=== PATIENT | male | born 1945 | race Caucasian/White ===

== ENCOUNTER 2021-08-26 13:39 | Outpatient (CLI) | payer MEDICARE, SELFPAY ==
[2021-08-26 15:47] LABS: Basophils # 0.1 10^3/uL (0.0-0.1); Basophils % 0.5 %; Eosinophils # 0.1 10^3/uL (0.0-0.8); Eosinophils % 0.5 %; Hematocrit 34.8 % (42.0-52.0); Hemoglobin 11.7 g/dL (11.7-16.6); Lymphocytes # 2.1 10^3/uL (0.8-4.8); Lymphocytes % 21.7 %; Mean Corpuscular HGB Conc 33.6 g/dL (30.0-36.0); Mean Corpuscular Hemoglobin 32.1 pg (28.0-34.0); Mean Corpuscular Volume 95.3 fl (80-94); Mean Platelet Volume 10.7 fL (7.4-10.4); Monocytes # 0.9 10^3/uL (0.2-0.9); Neutrophils # 6.61 10^3/uL (1.8-7.7); Neutrophils % 67.1 %; Nucleated Red Blood Cells # 0.1 /100WBC; Nucleated Red Blood Cells % 0.5 %; Platelet Count 939 10^3/cmm (130-400); Red Blood Count 3.65 10^6/uL (4.1-5.3); Red Cell Distribution Width 18.3 % (12.1-15.1); White Blood Count 9.9 10^3/uL (4.0-10.0)
[2021-08-26 16:37] LABS: Alanine Aminotransferase 21 U/L (0-41); Albumin Level 4.6 g/dL (3.5-5.2); Alkaline Phosphatase 69 IU/L (40-130); Aspartate Amino Transferase 19 U/L (0-40); Blood Urea Nitrogen 17 mg/dL (8-23); Calcium 9.6 mg/dL (8.5-10.5); Carbon Dioxide 25 mmol/L (22-29); Chloride 102 mmol/L (98-107); Ferritin 219 ng/mL (30-400); Globulin 2.7 g/dL (1.3-4.6); Glucose 114 mg/dL (65-115); Iron 83 ug/dL (59-158); Osmolality Calculated 286 mOsm/kg (285-295); Sodium 137 mmol/L (136-145); Thyroid Stimulating Hormone 2.63 uIU/mL (0.27-4.20); Total Bilirubin 0.2 mg/dL (0.15-1.2); Total Iron Binding Capacity 267 mcg/dl; Total Protein 7.3 g/dL (6.6-8.7); Unsaturated Iron Binding 184 ug/dL (112-347); Vitamin B12 781 pg/mL (232-1245)
[2021-08-26 17:23] LABS: Lactate Dehydrogenase 274 U/L (135-225)
--- NOTE | 2021-08-26 18:10 | ONC CON_ITS ---
Dr. Zuñiga New Patient Note Patient: Donovan Salcedo Unit #: [id number]: 1945 Dicatated By: Nacho Zuñiga M.D.Date of Visit: Aug 26, 2021 Onc MED New Patient/Consult Referring Physician: Riki Fu Chief Complaint: Myelofibrosis. History of Present Illness: This is a 75-year-old man with myelofibrosis, initially diagnosed in March 2020. He had presented in February 2020 with an elevated platelet count at 736,000. Hemoglobin was borderline low at 13.8 g. Blood smear reportedly showed numerous large platelet forms. His bone marrow aspiration/biopsy on 04/01/2020 was mildly hypercellular with increased megakaryocytes. 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 The JAK2 V617F mutation was detected, but at a level which did not meet WHO criteria (0.1%). 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 At the time he had significant fatigue as well as left upper quadrant abdominal pain and splenomegaly. In April 2020 he began treatment with ruxolitinib, initially at 5 mg twice daily. Over the next several months the dosage was gradually escalated up to 15 mg twice daily. He had a very good clinical response with resolution of the splenomegaly and left upper quadrant pain. He also had some improvement in his constitutional symptoms. During subsequent follow-up, the dosage was reduced to 15 mg once daily and then maintained at that level. He is being seen here so that he can continue his follow-up care closer to home. He continues to complain that his energy is very low. He especially feels tired in the evenings. Some days he is able to do light work, but overall he does feel that his activity tolerance is declining. His ECOG score is 1. His appetite recently has been down a little, but his weight has remained stable. He does not have fever or night sweats. He has not had sore mouth or throat. He does have cough, attributable to smoking, and he also has shortness of breath with activity. He very occasionally has chest pain. He currently has no GI complaints. In particular, he has had no recurrence of the left upper quadrant abdominal pain. Bladder function remains adequate, though he does have some hesitancy and he has nocturia 2 or 3 times. Lately he has had some pain in the lower back area. He has no other joint or bone pain. He has occasional orthostatic lightheadedness. He does not complain of headache, and he has no focal neurologic symptoms. Past Medical History: His medical history includes benign prostatic hypertrophy, chronic obstructive pulmonary disease, hypertension, and myelofibrosis. Past Surgical History: His surgical/procedural history includes amputation of finger and thumb, left foot surgery for traumatic injury, bone marrow aspiration/biopsy in 2019, and colonoscopy in 2015. Medications: amLODIPine Besylate 1 - 2 Tablet (of 5 mg) Oral daily, Aspirin 1 Tablet (of 81 mg) Tablet, chewable Oral daily, Daily Vitamin 1 Tablet Oral daily, Jakafi 1 Tablet (of 15 mg) Oral daily, Saw Hudson 1 Tablet Oral daily Allergies: No Known Allergies. Social History: Mr. Salcedo is . He has a long history of smoking, which included 1 pack of cigarettes daily until sometime in the early 1980s. At that point he changed to smoking a pipe, which he continues presently. He drinks 2 beers daily. He has never been a heavy drinker. Family History: His father at age 78 with COPD. Mother had heart disease and stroke. She at age 80. Two sisters both with heart disease in their 40s. One had a sudden and the other apparently during a heart transplant procedure. Review Of Symptoms: Constitutional - He complains that his energy is very low. He particularly feels tired in the evenings. His activity is variable, but some days he is able to do light work. He does feel that his activity tolerance is declining. Appetite recently has been down, but his weight has been stable. He does not have fever or night sweats. ECOG score is 1, Eyes - No change in vision, ENMT - No hearing loss or tinnitus. No sinus congestion/drainage. No mouth sores. No sore throat or difficulty swallowing, Hematologic/Lymphatic - He bruises extremely easily and he tends to bleed profusely with cuts, Respiratory - He has shortness of breath. He has cough, attributable to smoking. No pleuritic pain or hemoptysis, Cardiovascular - He very occasionally has chest pain. No palpitations, Gastrointestinal - No nausea or vomiting. He has heartburn with spicy foods. No diarrhea or constipation. No blood in the stool or black stools, Genitourinary (M) - No dysuria or hematuria. No urinary frequency. He has some hesitancy with urination and he has nocturia 2 or 3 times. No urgency or incontinence, Musculoskeletal - He has some lower back pain, Integumentary - No skin rash or other skin changes, Neurologic - No headache. He has occasional orthostatic lightheadedness. No numbness or tingling. No other focal neurologic symptoms, Psychiatric - No anxiety. He has some depression, attributable to his declining activity tolerance. No insomnia. Vital Signs: Performed on Aug 26, 2021 15:18: 71.00 in, 169/71 mm(hg) (HIGH), Performed on Aug 26, 2021 15:17: 8, 0, 20.95, 1.87 sq.m, 97 %, 73 /min, 18 /min, 99.5 F (HIGH), and 150.2 lbs (HIGH). Physical Examination: Constitutional - He appears somewhat weak generally, but not acutely ill, Eyes - Sclerae nonicteric. Conjunctivae clear, ENMT - No lesions noted in the oral cavity, Neck - No mass or thyromegaly, Hematologic/Lymphatic - No cervical, clavicular, or axillary adenopathy, Respiratory - Lungs sound clear with some decrease in air movement bilaterally, Cardiovascular - Heart rhythm is regular. There is no murmur, gallop, or rub noted, Abdomen - Soft and non-tender. Liver is not enlarged. Spleen is not palpable. There is no abdominal mass or ascites noted and there is no inguinal adenopathy, Back/Spine - No spine or CVA tenderness noted, Extremities - No edema. Dorsalis pedis pulses are palpable bilaterally, Integumentary - No rashes. No suspicious skin lesions noted, Neurologic - No focal neurologic deficits noted. Problem List: 1. Primary myelofibrosis. 2. Hypertension. 3. COPD. 4. Benign prostatic hypertrophy. Problems Addressed with this Encounter and Plan: Patient with primary myelofibrosis, presenting in February 2020 with thrombocythemia, splenomegaly, left upper quadrant abdominal pain, and constitutional symptoms. Bone marrow aspiration/biopsy on 04/01/2020 showed hypercellular marrow with increased megakaryocytes and with diffuse 1+ reticulin fibrosis. The JAK2 V617F mutation was detected, but at a level which did not meet WHO criteria (0.1%). 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 He has had a very good clinical response to treatment with ruxolitinib, with the dosage eventually adjusted to 15 mg once daily, which he seems to tolerate well. He also is on prophylaxis with an 81 mg aspirin tablet daily. He does have a moderate bleeding tendency, but his initial evaluation also did include negative screening for acquired von Willebrand's disease. He will have laboratory studies today to include CBC, comprehensive metabolic profile, LDH level, serum iron studies, B12 level, and TSH level. Assuming the blood counts are within target range, he will continue ruxolitinib at 15 mg daily together with aspirin 81 mg daily. I will tentatively plan to continue follow-up at 3-month intervals. Signed By: Nacho Zuñiga M.D. <<Signature on File>>
[2021-08-26 23:14] LABS: LAB Peripheral Smear Sent for Review
== END 2021-08-26 13:40 | disposition home or self-care (01) ==
LOC: ONCMED 13:46
PROVIDERS: PCP Family Medicine; Visit Provider Internal Medicine Medical Oncology
DX: D47.1 Chronic myeloproliferative disease (principal); I10 Essential (primary) hypertension; J44.9 Chronic obstructive pulmonary disease, unspecified; N40.1 Benign prostatic hyperplasia with lower urinary tract symptoms
CPT/HCPCS: 36415; 80053; 82607; 82728; 83540; 83550; 83615; 84443; 85025; 99204

== ENCOUNTER 2021-11-30 10:48 | Oncology outpatient (recurring) (ONCR) | payer MEDICARE, SELFPAY ==
[2021-11-30 11:29] LABS: Basophils # 0.1 10^3/uL (0.0-0.1); Basophils % 0.8 %; Eosinophils # 0.1 10^3/uL (0.0-0.8); Hematocrit 34.8 % (42.0-52.0); Lymphocytes # 2.5 10^3/uL (0.8-4.8); Lymphocytes % 24.5 %; Mean Corpuscular HGB Conc 34.5 g/dL (30.0-36.0); Mean Corpuscular Hemoglobin 32.2 pg (28.0-34.0); Mean Corpuscular Volume 93.3 fl (80-94); Mean Platelet Volume 10.7 fL (7.4-10.4); Monocytes % 9.5 %; Neutrophils # 6.18 10^3/uL (1.8-7.7); Neutrophils % 61.6 %; Nucleated Red Blood Cells # 0.1 /100WBC; Nucleated Red Blood Cells % 0.8 %; Platelet Count 917 10^3/cmm (130-400); Red Blood Count 3.73 10^6/uL (4.1-5.3); Red Cell Distribution Width 18.6 % (12.1-15.1)
[2021-11-30 13:21] LABS: Alanine Aminotransferase 26 U/L (0-41); Albumin Level 4.7 g/dL (3.5-5.2); Alkaline Phosphatase 63 IU/L (40-130); Anion Gap 15.6 (5-19); Aspartate Amino Transferase 22 U/L (0-40); Blood Urea Nitrogen 17 mg/dL (8-23); Calcium 9.4 mg/dL (8.5-10.5); Carbon Dioxide 25 mmol/L (22-29); Chloride 100 mmol/L (98-107); Glucose 101 mg/dL (65-115); Lactate Dehydrogenase 308 U/L (135-225); Osmolality Calculated 284 mOsm/kg (285-295); Potassium 4.6 mmol/L (3.5-5.1); Sodium 136 mmol/L (136-145); Total Bilirubin 0.2 mg/dL (0.15-1.2); Total Protein 6.7 g/dL (6.6-8.7)
== END 2021-12-12 23:59 | disposition home or self-care (01) ==
PROVIDERS: PCP Family Medicine; Visit Provider Internal Medicine Medical Oncology
DX: D75.81 Myelofibrosis (principal); J44.9 Chronic obstructive pulmonary disease, unspecified; Z79.82 Long term (current) use of aspirin; Z79.891 Long term (current) use of opiate analgesic; Z79.899 Other long term (current) drug therapy
CPT/HCPCS: 36415; 80053; 83615; 85025; 99214

== ENCOUNTER 2022-03-02 12:23 | Oncology outpatient (recurring) (ONCR) | payer MEDICARE, SELFPAY ==
[2022-03-02 12:48] LABS: Basophils # 0.1 10^3/uL (0.0-0.1); Basophils % 0.8 %; Eosinophils # 0.1 10^3/uL (0.0-0.8); Eosinophils % 0.5 %; Hematocrit 36.5 % (42.0-52.0); Hemoglobin 12.5 g/dL (11.7-16.6); Lymphocytes # 2.4 10^3/uL (0.8-4.8); Lymphocytes % 24.9 %; Mean Corpuscular HGB Conc 34.2 g/dL (30.0-36.0); Mean Corpuscular Hemoglobin 33.6 pg (28.0-34.0); Mean Corpuscular Volume 98.1 fl (80-94); Mean Platelet Volume 10.4 fL (7.4-10.4); Monocytes # 0.9 10^3/uL (0.2-0.9); Monocytes % 9.9 %; Neutrophils # 5.86 10^3/uL (1.8-7.7); Neutrophils % 61.5 %; Nucleated Red Blood Cells # 0.1 /100WBC; Nucleated Red Blood Cells % 0.6 %; Platelet Count 868 10^3/cmm (130-400); Red Blood Count 3.72 10^6/uL (4.1-5.3); Red Cell Distribution Width 18.4 % (12.1-15.1); White Blood Count 9.5 10^3/uL (4.0-10.0)
[2022-03-02 13:11] LABS: Alanine Aminotransferase 23 U/L (0-41); Albumin Level 4.6 g/dL (3.5-5.2); Alkaline Phosphatase 63 U/L (40-130); Anion Gap 14.6 (5-19); Aspartate Amino Transferase 19 U/L (0-40); Blood Urea Nitrogen 17 mg/dL (8-23); Calcium 9.4 mg/dL (8.5-10.5); Carbon Dioxide 27 mmol/L (22-29); Chloride 101 mmol/L (98-107); Globulin 2.6 g/dL (1.3-4.6); Glucose 111 mg/dL (65-115); Lactate Dehydrogenase 323 U/L (135-225); Osmolality Calculated 288 mOsm/kg (285-295); Potassium 4.6 mmol/L (3.5-5.1); Sodium 138 mmol/L (136-145); Total Bilirubin 0.2 mg/dL (0.15-1.2); Total Protein 7.2 g/dL (6.6-8.7)
== END 2022-03-14 23:59 | disposition home or self-care (01) ==
PROVIDERS: Nurse Practitioner; PCP Family Medicine; Visit Provider Internal Medicine Medical Oncology
DX: D75.81 Myelofibrosis (principal); J44.9 Chronic obstructive pulmonary disease, unspecified; Z79.82 Long term (current) use of aspirin; Z79.891 Long term (current) use of opiate analgesic; Z79.899 Other long term (current) drug therapy; F17.210 Nicotine dependence, cigarettes, uncomplicated; F10.20 Alcohol dependence, uncomplicated
CPT/HCPCS: 80053; 83615; 85025; 99214

== ENCOUNTER 2022-06-20 10:38 | Oncology outpatient (recurring) (ONCR) | payer MEDICARE, SELFPAY ==
[2022-06-20 11:14] LABS: Basophils # 0.1 10^3/uL (0.0-0.1); Eosinophils # 0.1 10^3/uL (0.0-0.8); Hematocrit 36.1 % (42.0-52.0); Hemoglobin 11.8 g/dL (11.7-16.6); Lymphocytes # 2.7 10^3/uL (0.8-4.8); Lymphocytes % 24.3 %; Mean Corpuscular HGB Conc 32.7 g/dL (30.0-36.0); Mean Corpuscular Hemoglobin 31.6 pg (28.0-34.0); Mean Corpuscular Volume 96.5 fl (80-94); Mean Platelet Volume 10.1 fL (7.4-10.4); Monocytes # 1.2 10^3/uL (0.2-0.9); Monocytes % 11.3 %; Neutrophils # 6.37 10^3/uL (1.8-7.7); Neutrophils % 58.3 %; Nucleated Red Blood Cells # 0.1 /100WBC; Nucleated Red Blood Cells % 1.1 %; Platelet Count 764 10^3/cmm (130-400); Red Blood Count 3.74 10^6/uL (4.1-5.3); Red Cell Distribution Width 18.1 % (12.1-15.1); White Blood Count 10.9 10^3/uL (4.0-10.0)
[2022-06-20 11:34] LABS: LAB Peripheral Smear Sent for Review
[2022-06-20 11:36] LABS: Alanine Aminotransferase 24 U/L (0-41); Albumin Level 4.4 g/dL (3.5-5.2); Alkaline Phosphatase 71 U/L (40-130); Anion Gap 11.5 (5-19); Aspartate Amino Transferase 19 U/L (0-40); Blood Urea Nitrogen 22 mg/dL (8-23); Calcium 9.3 mg/dL (8.5-10.5); Carbon Dioxide 29 mmol/L (22-29); Chloride 100 mmol/L (98-107); Globulin 2.2 g/dL (1.3-4.6); Glucose 101 mg/dL (65-115); Lactate Dehydrogenase 320 U/L (135-225); Osmolality Calculated 285 mOsm/kg (285-295); Potassium 4.5 mmol/L (3.5-5.1); Sodium 136 mmol/L (136-145); Total Bilirubin 0.2 mg/dL (0.15-1.2); Total Protein 6.6 g/dL (6.6-8.7)
== END 2022-07-12 23:59 | disposition home or self-care (01) ==
PROVIDERS: PCP Family Medicine; Visit Provider Internal Medicine Medical Oncology
DX: D75.81 Myelofibrosis (principal); J44.9 Chronic obstructive pulmonary disease, unspecified; F17.210 Nicotine dependence, cigarettes, uncomplicated; F10.20 Alcohol dependence, uncomplicated; Z79.82 Long term (current) use of aspirin; Z79.891 Long term (current) use of opiate analgesic; Z79.899 Other long term (current) drug therapy
CPT/HCPCS: 36415; 80053; 83615; 85025; 99214

== ENCOUNTER 2022-09-20 12:11 | Oncology outpatient (recurring) (ONCR) | payer MEDICARE, SELFPAY | END 2022-10-12 23:59 | disposition home or self-care (01) | PROVIDERS: PCP Family Medicine; Visit Provider Internal Medicine Medical Oncology | DX: D75.81 Myelofibrosis (principal); J44.9 Chronic obstructive pulmonary disease, unspecified; F17.210 Nicotine dependence, cigarettes, uncomplicated; F10.20 Alcohol dependence, uncomplicated; Z79.82 Long term (current) use of aspirin; Z79.891 Long term (current) use of opiate analgesic; Z79.899 Other long term (current) drug therapy | CPT/HCPCS: 36415; 80053; 83615; 85025; 99214 ==

== ENCOUNTER 2022-11-01 13:41 | Oncology outpatient (recurring) (ONCR) | payer MEDICARE, SELFPAY ==
[2022-11-01 13:54] VITALS: BP 145/84; PULSE 85; RESP 18; TEMP 36.5; O2SAT 97
[2022-11-01 14:04] LABS: Basophils # 0.1 10^3/uL (0.0-0.1); Basophils % 0.9 %; Eosinophils # 0.1 10^3/uL (0.0-0.8); Eosinophils % 0.9 %; Hematocrit 37.1 % (42.0-52.0); Hemoglobin 12.4 g/dL (11.7-16.6); Lymphocytes # 2.9 10^3/uL (0.8-4.8); Lymphocytes % 24.5 %; Mean Corpuscular HGB Conc 33.4 g/dL (30.0-36.0); Mean Corpuscular Volume 95.9 fl (80-94); Mean Platelet Volume 10.1 fL (7.4-10.4); Monocytes % 8.9 %; Neutrophils # 7.12 10^3/uL (1.8-7.7); Neutrophils % 60.5 %; Nucleated Red Blood Cells # 0.1 /100WBC; Nucleated Red Blood Cells % 0.7 %; Platelet Count 766 10^3/cmm (130-400); Red Blood Count 3.87 10^6/uL (4.1-5.3); Red Cell Distribution Width 17.4 % (12.1-15.1); White Blood Count 11.8 10^3/uL (4.0-10.0)
== END 2022-11-11 23:59 | disposition home or self-care (01) ==
PROVIDERS: PCP Family Medicine; Visit Provider Internal Medicine Medical Oncology
DX: D75.81 Myelofibrosis (principal)
CPT/HCPCS: 36415; 85025

== ENCOUNTER 2022-12-23 11:00 | Oncology outpatient (recurring) (ONCR) | payer MEDICARE, SELFPAY ==
[2022-12-21 12:49] VITALS: BP 109/66; PULSE 99; RESP 18; TEMP 36.7; O2SAT 90
[2022-12-21 13:01] LABS: Basophils # 0.1 10^3/uL (0.0-0.1); Basophils % 0.7 %; Eosinophils # 0.1 10^3/uL (0.0-0.8); Eosinophils % 0.6 %; Hematocrit 33.3 % (42.0-52.0); Hemoglobin 10.9 g/dL (11.7-16.6); Lymphocytes # 2.9 10^3/uL (0.8-4.8); Lymphocytes % 17.7 %; Mean Corpuscular HGB Conc 32.7 g/dL (30.0-36.0); Mean Corpuscular Hemoglobin 32.1 pg (28.0-34.0); Mean Corpuscular Volume 97.9 fl (80-94); Mean Platelet Volume 9.7 fL (7.4-10.4); Monocytes # 1.5 10^3/uL (0.2-0.9); Monocytes % 9.4 %; Neutrophils # 10.98 10^3/uL (1.8-7.7); Neutrophils % 67.3 %; Nucleated Red Blood Cells # 0.1 /100WBC; Nucleated Red Blood Cells % 0.4 %; Platelet Count 1405 10^3/cmm (130-400); Red Cell Distribution Width 17.4 % (12.1-15.1); White Blood Count 16.3 10^3/uL (4.0-10.0)
[2022-12-21 13:26] LABS: Alanine Aminotransferase 12 U/L (0-41); Albumin Level 3.9 g/dL (3.5-5.2); Alkaline Phosphatase 90 U/L (40-130); Anion Gap 15.5 (5-19); Aspartate Amino Transferase 20 U/L (0-40); Blood Urea Nitrogen 16 mg/dL (8-23); Calcium 9.3 mg/dL (8.5-10.5); Carbon Dioxide 28 mmol/L (22-29); Chloride 99 mmol/L (98-107); Globulin 2.9 g/dL (1.3-4.6); Glucose 100 mg/dL (65-115); Lactate Dehydrogenase 338 U/L (135-225); Osmolality Calculated 287 mOsm/kg (285-295); Potassium 4.5 mmol/L (3.5-5.1); Sodium 138 mmol/L (136-145); Total Bilirubin 0.2 mg/dL (0.15-1.2); Total Protein 6.8 g/dL (6.6-8.7)
[2022-12-21 15:50] LABS: LAB Peripheral Smear Sent for Review
[2022-12-23 09:53] VITALS: BP 154/77; PULSE 84; RESP 18; TEMP 36.8; O2SAT 96
[2022-12-27 06:58] LABS: Leukemia Profile (BBPL) See Report; Lymphoma Profile (BBPL) See Report
== END 2023-01-12 23:59 | disposition home or self-care (01) ==
PROVIDERS: PCP Family Medicine; Visit Provider Internal Medicine Medical Oncology
DX: D75.81 Myelofibrosis (principal)
CPT/HCPCS: 36415; 80053; 83615; 85025; 88184; 88185; 99214

== ENCOUNTER 2023-01-18 14:15 | Oncology outpatient (recurring) (ONCR) | payer MEDICARE, SELFPAY ==
[2023-01-18 14:34] VITALS: BP 156/75; PULSE 70; RESP 18; TEMP 37.1; O2SAT 96
[2023-01-18 14:53] LABS: Basophils # 0.1 10^3/uL (0.0-0.1); Basophils % 1.2 %; Eosinophils # 0.1 10^3/uL (0.0-0.8); Hematocrit 34.4 % (37-53); Lymphocytes # 2.8 10^3/uL (0.8-4.8); Mean Corpuscular HGB Conc 32.6 g/dL (30-55); Mean Corpuscular Hemoglobin 32.1 pg (27-33); Mean Corpuscular Volume 98.6 fl (82-101); Mean Platelet Volume 10.1 fL (7.4-10.4); Monocytes # 1.1 10^3/uL (0.2-0.9); Monocytes % 9.7 %; Neutrophils # 6.72 10^3/uL (1.8-7.7); Neutrophils % 60.1 %; Nucleated Red Blood Cells # 0.1 /100WBC; Platelet Count 723 10^3/cmm (157-399); Red Blood Count 3.49 10^6/uL (3.85-5.65); Red Cell Distribution Width 18.5 % (12.1-15.1); White Blood Count 11.18 10^3/uL (3.29-11.43)
== END 2023-02-11 23:59 | disposition home or self-care (01) ==
PROVIDERS: PCP Family Medicine; Visit Provider Internal Medicine Medical Oncology
DX: D75.81 Myelofibrosis (principal)
CPT/HCPCS: 36415; 85025

== ENCOUNTER 2023-03-29 12:14 | Oncology outpatient (recurring) (ONCR) | payer MEDICARE, SELFPAY ==
[2023-03-29 13:00] VITALS: BP 160/79; PULSE 66; RESP 16; TEMP 37.1; O2SAT 97
[2023-03-29 13:04] LABS: Basophils # 0.1 10^3/uL (0.0-0.1); Eosinophils # 0.1 10^3/uL (0.0-0.8); Eosinophils % 0.9 %; Hematocrit 33.8 % (37-53); Lymphocytes # 2.2 10^3/uL (0.8-4.8); Lymphocytes % 23.7 %; Mean Corpuscular Hemoglobin 31.8 pg (27-33); Mean Corpuscular Volume 93.4 fl (82-101); Mean Platelet Volume 10.3 fL (7.4-10.4); Monocytes % 10.4 %; Neutrophils # 5.68 10^3/uL (1.8-7.7); Neutrophils % 60.5 %; Nucleated Red Blood Cells % 0.4 %; Platelet Count 709 10^3/cmm (157-399); Red Blood Count 3.62 10^6/uL (3.85-5.65); Red Cell Distribution Width 18.4 % (12.1-15.1); White Blood Count 9.39 10^3/uL (3.29-11.43)
[2023-03-29 13:38] LABS: Alanine Aminotransferase 21 U/L (0-41); Albumin Level 4.3 g/dL (3.5-5.2); Alkaline Phosphatase 66 U/L (40-130); Anion Gap 12.4 (5-19); Aspartate Amino Transferase 18 U/L (0-40); Blood Urea Nitrogen 16 mg/dL (8-23); Carbon Dioxide 27 mmol/L (22-29); Chloride 101 mmol/L (98-107); Ferritin 170 ng/mL (30-400); Globulin 2.2 g/dL (1.3-4.6); Glucose 100 mg/dL (65-115); Iron 58 ug/dL (59-158); Lactate Dehydrogenase 322 U/L (135-225); Osmolality Calculated 283 mOsm/kg (285-295); Percent Saturation 24.4 % (20-50); Potassium 4.4 mmol/L (3.5-5.1); Sodium 136 mmol/L (136-145); Thyroid Stimulating Hormone 1.27 uIU/mL (0.27-4.20); Total Bilirubin 0.2 mg/dL (0.15-1.2); Total Iron Binding Capacity 237 mcg/dl; Total Protein 6.5 g/dL (6.6-8.7); Unsaturated Iron Binding 179 ug/dL (112-347); Vitamin B12 855 pg/mL (232-1245)
== END 2023-04-13 23:59 | disposition home or self-care (01) ==
PROVIDERS: PCP Family Medicine; Visit Provider Internal Medicine Medical Oncology
DX: D75.81 Myelofibrosis (principal); R20.0 Anesthesia of skin; Z79.899 Other long term (current) drug therapy
CPT/HCPCS: 36415; 80053; 82607; 82728; 83540; 83550; 83615; 84443; 85025; 99214

== ENCOUNTER 2023-03-31 14:02 | Outpatient (CLI) | payer MEDICARE, SELFPAY ==
--- NOTE | 2023-03-31 14:30 | MR_ITS ---
WS: [id number] MRI BRAIN WITH AND WITHOUT CONTRAST HISTORY: c/o right arm numbness COMPARISON: None available. TECHNIQUE: Multiplanar imaging performed through the brain with MultiHance 14 ml's IV. No acute infarcts are seen. Davidson-white matter differentiation is well preserved. Mild small vessel is chemic changes bilaterally. No prior large territory infarct. Mild atrophy. No susceptibility artifacts or prior lacunar infarcts. Ventricles and extra-axial spaces are normal. Clivus and pituitary gland are normal. Posterior fossa is negative. On the T1 sequences there is low signal within the odontoid process with increased soft tissue surrounding the odontoid process. This needs to be further evaluated. This was not included on the postcontrast imaging. On the axial imaging there is also some increased fluid wi thin the LEFT C1-C2 facet. Signal does not appear abnormal within the odontoid process on the T2 sequ ence. Postcontrast images are negative for masses or vascular malformations. Dural venous sinuses are normal. Paranasal sinuses: Well aerated with no significant disease. Mastoid air cells: Normal. Calvarium and scalp: Normal. IMPRESSION: 1. No acute diffusion abnormalities. No acute infarct. 2. No enhancing masses or metastatic disease within the brain. 3. Abnormal signal within the odontoid process seen only on the sagittal T1 sequence of the brain. A dditional increased soft tissue surrounds odontoid process. These changes may all be degenerative. Re commend evaluation by MRI the cervical spine with and without contrast to confirm no enhancing bone l esion. Differential would include inflammatory arthropathy and metastatic bone disease. 4. Mild small vessel ischemic disease.
[2023-03-31] MEDS: gadobenate dimeglumine 20 mL vial IV (14:44)
== END 2023-03-31 14:03 | disposition home or self-care (01) ==
LOC: RAD 14:03
PROVIDERS: PCP Family Medicine; Visit Provider Nurse Practitioner Family
DX: D75.81 Myelofibrosis (principal); R20.0 Anesthesia of skin; R93.7 Abnormal findings on diagnostic imaging of other parts of musculoskeletal system; I67.89 Other cerebrovascular disease
CPT/HCPCS: 70553; A9577

== ENCOUNTER 2023-05-09 11:14 | Outpatient (CLI) | payer MEDICARE, SELFPAY ==
--- NOTE | 2023-05-09 11:45 | MR_ITS ---
WS: [id number] MR CERVICAL SPINE WO/W DATE OF EXAMINATION: 12/27/2022 COMPARISON: None. HISTORY: TECHNIQUE: Sagittal T1, T2 and T2 inversion recovery; axial T2, T2 gradient and fiesta. Post gadolini um imaging with fat saturation technique. FINDINGS: Straightening normal cervical lordosis. Moderate spondylitic changes cervical spine. Previo usly described abnormal bone marrow signal in the dens demonstrates no significant enhancement today. Findings compatible with degenerative change at the C1-2 articulation with mild pannus formation. No enhancing bony metastatic lesions. C2-3: Disc osteophyte complex with endplate ridging. Moderate RIGHT and mild LEFT bony foraminal narr owing. Mild facet arthropathy. C3-4: Disc osteophyte complex with mild to moderate central canal stenosis. Moderate to severe bilate ral bony foraminal narrowing worse on the LEFT. Moderate facet arthropathy. C4-5: Small disc osteophyte protrusion. Mild central canal stenosis. Advanced RIGHT facet arthropathy . Moderate to severe bilateral bony foraminal narrowing. C5-6: LEFT paracentral disc osteophyte protrusion with slight indentation of the cervical cord. Mild central canal stenosis. Severe LEFT and moderate RIGHT bony foraminal narrowing. Advanced facet arthr opathy worse on the RIGHT. C6-7: Mild LEFT and no significant RIGHT foraminal narrowing. Spinal canal is patent. C7-T1: Mild LEFT greater than RIGHT bony foraminal narrowing. Spinal canal is patent. IMPRESSION: 1. No enhancing bony metastatic lesions. 2. Mild to moderate central canal stenosis C3-C4. Mild central canal stenosis C4-C5 and C5-C6. 3. Advanced facet arthropathy RIGHT C3-C4, RIGHT C4-C5, bilateral C5-C6 worse on the RIGHT. 4. Multilevel moderate to severe bony foraminal narrowing worse at bilateral C3-4 worse on the LEFT, bilateral C4-5 worse on the RIGHT, and LEFT C5-C6.
[2023-05-09] MEDS: gadobenate dimeglumine 20 mL vial IV (12:15)
== END 2023-05-09 11:15 | disposition home or self-care (01) ==
LOC: RAD 11:14
PROVIDERS: PCP Family Medicine; Visit Provider Internal Medicine Medical Oncology
DX: M47.812 Spondylosis without myelopathy or radiculopathy, cervical region (principal); M48.02 Spinal stenosis, cervical region; M25.78 Osteophyte, vertebrae; R20.0 Anesthesia of skin
CPT/HCPCS: 72156; A9577

== ENCOUNTER 2023-06-29 13:34 | Oncology outpatient (recurring) (ONCR) | payer MEDICARE, SELFPAY ==
[2023-06-29 13:58] LABS: Basophils # 0.1 10^3/uL (0.0-0.1); Basophils % 0.8 %; Eosinophils # 0.1 10^3/uL (0.0-0.8); Eosinophils % 0.7 %; Hematocrit 33.7 % (37-53); Lymphocytes # 2.7 10^3/uL (0.8-4.8); Lymphocytes % 25.9 %; Mean Corpuscular HGB Conc 33.2 g/dL (30-55); Mean Corpuscular Hemoglobin 31.8 pg (27-33); Mean Corpuscular Volume 95.7 fl (82-101); Mean Platelet Volume 10.2 fL (7.4-10.4); Monocytes # 1.1 10^3/uL (0.2-0.9); Monocytes % 10.6 %; Neutrophils # 5.91 10^3/uL (1.8-7.7); Neutrophils % 57.4 %; Nucleated Red Blood Cells # 0.1 /100WBC; Nucleated Red Blood Cells % 0.8 %; Platelet Count 873 10^3/cmm (157-399); Red Blood Count 3.52 10^6/uL (3.85-5.65); Red Cell Distribution Width 19.2 % (12.1-15.1); White Blood Count 10.28 10^3/uL (3.29-11.43)
[2023-06-29 14:18] LABS: Alanine Aminotransferase 19 U/L (0-41); Albumin Level 4.3 g/dL (3.5-5.2); Alkaline Phosphatase 79 U/L (40-130); Aspartate Amino Transferase 22 U/L (0-40); Chloride 99 mmol/L (98-107); Glucose 107 mg/dL (65-115); Potassium 4.4 mmol/L (3.5-5.1); Sodium 137 mmol/L (136-145)
[2023-06-29 14:34] LABS: Anion Gap 14.4 (5-19); Blood Urea Nitrogen 19 mg/dL (8-23); Calcium 8.9 mg/dL (8.5-10.5); Carbon Dioxide 28 mmol/L (22-29); Globulin 2.7 g/dL (1.3-4.6); Osmolality Calculated 287 mOsm/kg (285-295); Total Bilirubin 0.2 mg/dL (0.15-1.2)
[2023-06-29 14:38] LABS: Lactate Dehydrogenase 311 U/L (135-225)
== END 2023-07-13 23:59 | disposition home or self-care (01) ==
PROVIDERS: Nurse Practitioner Family; PCP Family Medicine; Visit Provider Internal Medicine Medical Oncology
DX: D75.81 Myelofibrosis (principal); Z79.899 Other long term (current) drug therapy; Z79.82 Long term (current) use of aspirin; Z79.891 Long term (current) use of opiate analgesic; F17.210 Nicotine dependence, cigarettes, uncomplicated; Z79.622 Long term (current) use of Janus kinase inhibitor
CPT/HCPCS: 36415; 80053; 83615; 85025; 99214

== ENCOUNTER 2023-10-26 11:10 | Oncology outpatient (recurring) (ONCR) | payer MEDICARE, SELFPAY ==
[2023-10-26 11:34] LABS: Basophils # 0.1 10^3/uL (0.0-0.1); Basophils % 0.6 %; Eosinophils # 0.1 10^3/uL (0.0-0.8); Hematocrit 33.8 % (37-53); Lymphocytes # 2.5 10^3/uL (0.8-4.8); Lymphocytes % 26.7 %; Mean Corpuscular HGB Conc 33.4 g/dL (30-55); Mean Corpuscular Hemoglobin 31.8 pg (27-33); Mean Corpuscular Volume 95.2 fl (82-101); Monocytes % 10.7 %; Neutrophils % 58.1 %; Nucleated Red Blood Cells % 0.4 %; Platelet Count 862 10^3/cmm (157-399); Red Blood Count 3.55 10^6/uL (3.85-5.65); Red Cell Distribution Width 18.3 % (12.1-15.1); White Blood Count 9.29 10^3/uL (3.29-11.43)
[2023-10-26 11:56] LABS: Alanine Aminotransferase 18 U/L (0-41); Albumin Level 4.2 g/dL (3.5-5.2); Alkaline Phosphatase 71 U/L (40-130); Anion Gap 13.3 (5-19); Aspartate Amino Transferase 16 U/L (0-40); Blood Urea Nitrogen 17 mg/dL (8-23); Calcium 9.2 mg/dL (8.5-10.5); Carbon Dioxide 28 mmol/L (22-29); Chloride 99 mmol/L (98-107); Globulin 2.2 g/dL (1.3-4.6); Glucose 94 mg/dL (65-115); Lactate Dehydrogenase 279 U/L (135-225); Osmolality Calculated 283 mOsm/kg (285-295); Potassium 4.3 mmol/L (3.5-5.1); Sodium 136 mmol/L (136-145); Total Bilirubin 0.2 mg/dL (0.15-1.2); Total Protein 6.4 g/dL (6.6-8.7)
== END 2023-11-12 23:59 | disposition home or self-care (01) ==
PROVIDERS: PCP Family Medicine; Visit Provider Internal Medicine Medical Oncology
DX: Z53.9 Procedure and treatment not carried out, unspecified reason (principal); D75.81 Myelofibrosis; F17.290 Nicotine dependence, other tobacco product, uncomplicated; Z79.82 Long term (current) use of aspirin; Z79.891 Long term (current) use of opiate analgesic; Z79.899 Other long term (current) drug therapy; Z79.622 Long term (current) use of Janus kinase inhibitor
CPT/HCPCS: 36415; 80053; 83615; 85025; 99214

== ENCOUNTER 2024-02-05 13:48 | Oncology outpatient (recurring) (ONCR) | payer MEDICARE, SELFPAY ==
[2024-02-05 14:26] LABS: Basophils # 0.1 10^3/uL (0.0-0.1); Basophils % 0.7 %; Eosinophils # 0.1 10^3/uL (0.0-0.8); Eosinophils % 0.6 %; Hematocrit 31.6 % (37-53); Lymphocytes # 2.6 10^3/uL (0.8-4.8); Lymphocytes % 28.9 %; Mean Corpuscular HGB Conc 33.9 g/dL (30-55); Mean Corpuscular Hemoglobin 32.1 pg (27-33); Mean Corpuscular Volume 94.9 fl (82-101); Mean Platelet Volume 9.8 fL (7.4-10.4); Monocytes # 0.7 10^3/uL (0.2-0.9); Monocytes % 8.4 %; Neutrophils % 56.5 %; Nucleated Red Blood Cells % 0.3 %; Platelet Count 677 10^3/cmm (157-399); Red Blood Count 3.33 10^6/uL (3.85-5.65); Red Cell Distribution Width 18.9 % (12.1-15.1); White Blood Count 8.83 10^3/uL (3.29-11.43)
[2024-02-05 14:46] LABS: Alanine Aminotransferase 16 U/L (0-41); Albumin Level 4.3 g/dL (3.5-5.2); Alkaline Phosphatase 63 U/L (40-130); Anion Gap 14.1 (5-19); Aspartate Amino Transferase 25 U/L (0-40); Blood Urea Nitrogen 17 mg/dL (8-23); Calcium 8.9 mg/dL (8.5-10.5); Carbon Dioxide 28 mmol/L (22-29); Chloride 100 mmol/L (98-107); Globulin 2.1 g/dL (1.3-4.6); Glucose 103 mg/dL (65-115); Lactate Dehydrogenase 274 U/L (135-225); Osmolality Calculated 288 mOsm/kg (285-295); Potassium 4.1 mmol/L (3.5-5.1); Sodium 138 mmol/L (136-145); Total Bilirubin 0.2 mg/dL (0.15-1.2); Total Protein 6.4 g/dL (6.6-8.7)
== END 2024-02-12 23:59 | disposition home or self-care (01) ==
PROVIDERS: PCP Family Medicine; Visit Provider Internal Medicine Medical Oncology
DX: D75.81 Myelofibrosis (principal); Z79.899 Other long term (current) drug therapy
CPT/HCPCS: 36415; 80053; 83615; 85025; 99214

== ENCOUNTER 2024-05-14 13:08 | Oncology outpatient (recurring) (ONCR) | payer MEDICARE, SELFPAY ==
[2024-05-14 13:41] LABS: Basophils # 0.1 10^3/uL (0.0-0.1); Basophils % 0.5 %; Eosinophils % 0.3 %; Hematocrit 34.2 % (37-53); Lymphocytes # 3.5 10^3/uL (0.8-4.8); Lymphocytes % 23.1 %; Mean Corpuscular HGB Conc 32.5 g/dL (30-55); Mean Corpuscular Hemoglobin 31.5 pg (27-33); Mean Corpuscular Volume 97.2 fl (82-101); Mean Platelet Volume 9.7 fL (7.4-10.4); Monocytes # 1.1 10^3/uL (0.2-0.9); Neutrophils # 9.74 10^3/uL (1.8-7.7); Neutrophils % 64.8 %; Nucleated Red Blood Cells % 0.3 %; Platelet Count 1054 10^3/cmm (157-399); Red Blood Count 3.52 10^6/uL (3.85-5.65); Red Cell Distribution Width 18.1 % (12.1-15.1); White Blood Count 15.03 10^3/uL (3.29-11.43)
[2024-05-14 13:53] LABS: Alanine Aminotransferase 23 U/L (0-41); Albumin Level 4.1 g/dL (3.5-5.2); Alkaline Phosphatase 66 U/L (40-130); Anion Gap 14.6 (5-19); Aspartate Amino Transferase 20 U/L (0-40); Blood Urea Nitrogen 17 mg/dL (8-23); Calcium 8.9 mg/dL (8.5-10.5); Carbon Dioxide 28 mmol/L (22-29); Chloride 100 mmol/L (98-107); Globulin 2.1 g/dL (1.3-4.6); Glucose 146 mg/dL (65-115); Osmolality Calculated 290 mOsm/kg (285-295); Potassium 4.6 mmol/L (3.5-5.1); Sodium 138 mmol/L (136-145); Total Bilirubin 0.2 mg/dL (0.15-1.2); Total Protein 6.2 g/dL (6.6-8.7)
[2024-05-14 13:57] LABS: Lactate Dehydrogenase 343 U/L (135-225)
== END 2024-05-14 23:59 | disposition home or self-care (01) ==
PROVIDERS: Nurse Practitioner Family; PCP Family Medicine; Visit Provider Internal Medicine Medical Oncology
DX: D75.81 Myelofibrosis (principal); Z79.899 Other long term (current) drug therapy; Z79.64 Long term (current) use of myelosuppressive agent; Z79.82 Long term (current) use of aspirin
CPT/HCPCS: 36415; 80053; 83615; 85025; 99215

== ENCOUNTER 2024-06-11 10:45 | Oncology outpatient (recurring) (ONCR) | payer MEDICARE, SELFPAY ==
[2024-05-28 11:28] LABS: Basophils # 0.1 10^3/uL (0.0-0.1); Basophils % 0.9 %; Eosinophils # 0.1 10^3/uL (0.0-0.8); Eosinophils % 0.6 %; Hematocrit 33.1 % (37-53); Lymphocytes # 2.6 10^3/uL (0.8-4.8); Lymphocytes % 23.9 %; Mean Corpuscular HGB Conc 32.9 g/dL (30-55); Mean Corpuscular Hemoglobin 31.7 pg (27-33); Mean Corpuscular Volume 96.2 fl (82-101); Monocytes # 0.9 10^3/uL (0.2-0.9); Monocytes % 7.8 %; Neutrophils # 6.73 10^3/uL (1.8-7.7); Neutrophils % 62.1 %; Nucleated Red Blood Cells # 0.1 /100WBC; Nucleated Red Blood Cells % 0.6 %; Platelet Count 723 10^3/cmm (157-399); Red Blood Count 3.44 10^6/uL (3.85-5.65); Red Cell Distribution Width 18.8 % (12.1-15.1); White Blood Count 10.85 10^3/uL (3.29-11.43)
[2024-05-28 11:50] LABS: Alanine Aminotransferase 20 U/L (0-41); Albumin Level 4.1 g/dL (3.5-5.2); Alkaline Phosphatase 67 U/L (40-130); Anion Gap 13.1 (5-19); Aspartate Amino Transferase 19 U/L (0-40); Blood Urea Nitrogen 19 mg/dL (8-23); Calcium 9.5 mg/dL (8.5-10.5); Carbon Dioxide 28 mmol/L (22-29); Chloride 100 mmol/L (98-107); Globulin 2.1 g/dL (1.3-4.6); Glucose 87 mg/dL (65-115); Osmolality Calculated 286 mOsm/kg (285-295); Potassium 4.1 mmol/L (3.5-5.1); Sodium 137 mmol/L (136-145); Total Bilirubin 0.2 mg/dL (0.15-1.2); Total Protein 6.2 g/dL (6.6-8.7)
[2024-06-11 11:01] LABS: Basophils # 0.1 10^3/uL (0.0-0.1); Basophils % 0.6 %; Eosinophils # 0.1 10^3/uL (0.0-0.8); Eosinophils % 0.8 %; Hematocrit 34.2 % (37-53); Lymphocytes # 2.5 10^3/uL (0.8-4.8); Lymphocytes % 22.9 %; Mean Corpuscular HGB Conc 32.7 g/dL (30-55); Mean Corpuscular Hemoglobin 32.2 pg (27-33); Mean Corpuscular Volume 98.3 fl (82-101); Mean Platelet Volume 9.9 fL (7.4-10.4); Monocytes # 0.8 10^3/uL (0.2-0.9); Monocytes % 7.4 %; Neutrophils # 6.92 10^3/uL (1.8-7.7); Neutrophils % 64.4 %; Nucleated Red Blood Cells # 0.1 /100WBC; Nucleated Red Blood Cells % 0.6 %; Platelet Count 683 10^3/cmm (157-399); Red Blood Count 3.48 10^6/uL (3.85-5.65); Red Cell Distribution Width 19.7 % (12.1-15.1); White Blood Count 10.77 10^3/uL (3.29-11.43)
[2024-06-11 11:25] LABS: Alanine Aminotransferase 20 U/L (0-41); Albumin Level 4.3 g/dL (3.5-5.2); Alkaline Phosphatase 62 U/L (40-130); Anion Gap 14.9 (5-19); Aspartate Amino Transferase 18 U/L (0-40); Blood Urea Nitrogen 21 mg/dL (8-23); Calcium 9.3 mg/dL (8.5-10.5); Carbon Dioxide 29 mmol/L (22-29); Chloride 99 mmol/L (98-107); Glucose 100 mg/dL (65-115); Osmolality Calculated 291 mOsm/kg (285-295); Potassium 3.9 mmol/L (3.5-5.1); Sodium 139 mmol/L (136-145); Total Bilirubin 0.2 mg/dL (0.15-1.2); Total Protein 6.3 g/dL (6.6-8.7)
== END 2024-06-14 23:59 | disposition home or self-care (01) ==
PROVIDERS: Nurse Practitioner; PCP Family Medicine; Visit Provider Internal Medicine Medical Oncology
DX: Z53.9 Procedure and treatment not carried out, unspecified reason; D75.81 Myelofibrosis; D75.839 Thrombocytosis, unspecified; Z79.899 Other long term (current) drug therapy
CPT/HCPCS: 36415; 80053; 85025; 99214

== ENCOUNTER 2024-07-09 11:43 | Oncology outpatient (recurring) (ONCR) | payer MEDICARE, SELFPAY ==
[2024-07-09 12:01] LABS: Basophils # 0.1 10^3/uL (0.0-0.1); Basophils % 0.7 %; Eosinophils # 0.1 10^3/uL (0.0-0.8); Eosinophils % 0.5 %; Hematocrit 34.2 % (37-53); Lymphocytes # 2.8 10^3/uL (0.8-4.8); Lymphocytes % 22.1 %; Mean Corpuscular HGB Conc 33.6 g/dL (30-55); Mean Corpuscular Hemoglobin 33.8 pg (27-33); Mean Corpuscular Volume 100.6 fl (82-101); Mean Platelet Volume 9.7 fL (7.4-10.4); Monocytes # 1.2 10^3/uL (0.2-0.9); Neutrophils # 8.25 10^3/uL (1.8-7.7); Neutrophils % 64.6 %; Nucleated Red Blood Cells # 0.1 /100WBC; Nucleated Red Blood Cells % 0.4 %; Platelet Count 664 10^3/cmm (157-399); Red Cell Distribution Width 20.9 % (12.1-15.1); White Blood Count 12.77 10^3/uL (3.29-11.43)
[2024-07-09 12:21] LABS: Alanine Aminotransferase 20 U/L (0-41); Albumin Level 4.4 g/dL (3.5-5.2); Alkaline Phosphatase 57 U/L (40-130); Anion Gap 11.5 (5-19); Aspartate Amino Transferase 19 U/L (0-40); Blood Urea Nitrogen 22 mg/dL (8-23); Calcium 9.3 mg/dL (8.5-10.5); Carbon Dioxide 29 mmol/L (22-29); Chloride 98 mmol/L (98-107); Creatinine Clr Calc Pharmacy 65.6901; Globulin 1.9 g/dL (1.3-4.6); Glucose 111 mg/dL (65-115); Lactate Dehydrogenase 290 U/L (135-225); Osmolality Calculated 282 mOsm/kg (285-295); Potassium 4.5 mmol/L (3.5-5.1); Sodium 134 mmol/L (136-145); Total Bilirubin 0.2 mg/dL (0.15-1.2); Total Protein 6.3 g/dL (6.6-8.7)
== END 2024-07-12 23:59 | disposition home or self-care (01) ==
PROVIDERS: Nurse Practitioner; PCP Family Medicine; Visit Provider Internal Medicine Medical Oncology
DX: D75.81 Myelofibrosis (principal); Z79.899 Other long term (current) drug therapy; D75.839 Thrombocytosis, unspecified; K40.90 Unilateral inguinal hernia, without obstruction or gangrene, not specified as recurrent
CPT/HCPCS: 36415; 80053; 83615; 85025; 99214

== ENCOUNTER → 2024-07-11 09:47 | Outpatient (BNVA) | payer MEDICARE, SELFPAY | PROVIDERS: PCP Family Medicine; Visit Provider Student in an Organized Health Care Education/Training Program | DX: K46.9 Unspecified abdominal hernia without obstruction or gangrene (principal); R03.0 Elevated blood-pressure reading, without diagnosis of hypertension | CPT/HCPCS: 99203 ==

== ENCOUNTER 2024-09-04 12:38 | Oncology outpatient (recurring) (ONCR) | payer MEDICARE, SELFPAY ==
[2024-09-04 13:27] LABS: Basophils # 0.1 10^3/uL (0.0-0.1); Basophils % 0.7 %; Eosinophils # 0.1 10^3/uL (0.0-0.8); Eosinophils % 0.6 %; Hematocrit 31.7 % (37-53); Lymphocytes % 20.3 %; Mean Corpuscular HGB Conc 33.4 g/dL (30-55); Mean Corpuscular Hemoglobin 34.4 pg (27-33); Mean Corpuscular Volume 102.9 fl (82-101); Mean Platelet Volume 10.1 fL (7.4-10.4); Monocytes % 10.7 %; Neutrophils # 6.31 10^3/uL (1.8-7.7); Neutrophils % 64.8 %; Nucleated Red Blood Cells % 0.4 %; Platelet Count 654 10^3/cmm (157-399); Red Blood Count 3.08 10^6/uL (3.85-5.65); Red Cell Distribution Width 19.5 % (12.1-15.1); White Blood Count 9.74 10^3/uL (3.29-11.43)
[2024-09-04 13:46] LABS: Alanine Aminotransferase 14 U/L (0-41); Albumin Level 4.2 g/dL (3.5-5.2); Alkaline Phosphatase 76 U/L (40-130); Anion Gap 12.1 (5-19); Aspartate Amino Transferase 17 U/L (0-40); Blood Urea Nitrogen 14 mg/dL (8-23); Calcium 8.9 mg/dL (8.5-10.5); Carbon Dioxide 29 mmol/L (22-29); Chloride 103 mmol/L (98-107); Creatinine Clr Calc Pharmacy 58.9651; Globulin 2.3 g/dL (1.3-4.6); Glucose 119 mg/dL (65-115); Lactate Dehydrogenase 310 U/L (135-225); Osmolality Calculated 292 mOsm/kg (285-295); Potassium 4.1 mmol/L (3.5-5.1); Sodium 140 mmol/L (136-145); Total Bilirubin 0.2 mg/dL (0.15-1.2); Total Protein 6.5 g/dL (6.6-8.7)
== END 2024-09-11 23:59 | disposition home or self-care (01) ==
PROVIDERS: Nurse Practitioner; PCP Family Medicine; Visit Provider Internal Medicine Medical Oncology
DX: D75.81 Myelofibrosis (principal); R03.0 Elevated blood-pressure reading, without diagnosis of hypertension; D64.9 Anemia, unspecified; K40.90 Unilateral inguinal hernia, without obstruction or gangrene, not specified as recurrent; G89.29 Other chronic pain; D75.839 Thrombocytosis, unspecified; Z79.899 Other long term (current) drug therapy; Z71.6 Tobacco abuse counseling
CPT/HCPCS: 36415; 80053; 83615; 85025; 99213

== ENCOUNTER 2024-11-06 12:45 | Oncology outpatient (recurring) (ONCR) | payer MEDICARE, SELFPAY ==
[2024-11-06 12:58] LABS: Basophils # 0.1 10^3/uL (0.0-0.1); Basophils % 0.6 %; Eosinophils # 0.1 10^3/uL (0.0-0.8); Eosinophils % 0.5 %; Hematocrit 35.2 % (37-53); Lymphocytes # 3.2 10^3/uL (0.8-4.8); Lymphocytes % 26.1 %; Mean Corpuscular HGB Conc 33.2 g/dL (30-55); Mean Corpuscular Hemoglobin 34.7 pg (27-33); Mean Corpuscular Volume 104.5 fl (82-101); Monocytes # 0.8 10^3/uL (0.2-0.9); Monocytes % 6.6 %; Neutrophils # 7.85 10^3/uL (1.8-7.7); Neutrophils % 64.2 %; Nucleated Red Blood Cells # 0.1 /100WBC; Nucleated Red Blood Cells % 0.4 %; Platelet Count 696 10^3/cmm (157-399); Red Blood Count 3.37 10^6/uL (3.85-5.65); Red Cell Distribution Width 17.8 % (12.1-15.1); White Blood Count 12.23 10^3/uL (3.29-11.43)
[2024-11-06 13:00] LABS: Erythrocyte Sedimentation Rate 4 mm/hr (0-10)
[2024-11-06 13:17] LABS: Alanine Aminotransferase 22 U/L (0-41); Albumin Level 4.5 g/dL (3.5-5.2); Alkaline Phosphatase 67 U/L (40-130); Anion Gap 16.4 (5-19); Aspartate Amino Transferase 21 U/L (0-40); Blood Urea Nitrogen 18 mg/dL (8-23); Calcium 9.2 mg/dL (8.5-10.5); Carbon Dioxide 26 mmol/L (22-29); Chloride 98 mmol/L (98-107); Ferritin 182 ng/mL (30-400); Globulin 2.5 g/dL (1.3-4.6); Glucose 193 mg/dL (65-115); Iron 81 ug/dL (59-158); Lactate Dehydrogenase 273 U/L (135-225); Osmolality Calculated 289 mOsm/kg (285-295); Percent Saturation 30.1 % (20-50); Potassium 4.4 mmol/L (3.5-5.1); Sodium 136 mmol/L (136-145); Total Bilirubin 0.2 mg/dL (0.15-1.2); Total Iron Binding Capacity 269 mcg/dl; Unsaturated Iron Binding 188 ug/dL (112-347); Uric Acid 5.4 mg/dL (3.4-7.0)
[2024-11-06 13:33] LABS: Vitamin B12 1192 pg/mL (232-1245)
[2024-11-06 13:47] LABS: Folate Level > 20.0 ng/mL (4.5-32.2)
== END 2024-11-11 23:59 | disposition home or self-care (01) ==
PROVIDERS: Internal Medicine; PCP Family Medicine; Visit Provider Internal Medicine Medical Oncology
DX: D75.81 Myelofibrosis (principal); D64.9 Anemia, unspecified; F17.290 Nicotine dependence, other tobacco product, uncomplicated; D75.839 Thrombocytosis, unspecified; Z79.899 Other long term (current) drug therapy; Z71.6 Tobacco abuse counseling; K40.90 Unilateral inguinal hernia, without obstruction or gangrene, not specified as recurrent; G89.29 Other chronic pain
CPT/HCPCS: 36415; 80053; 82607; 82728; 82746; 83010; 83540; 83550; 83615; 84550; 85025; 85651; 99214

== ENCOUNTER 2025-02-05 12:11 | Oncology outpatient (recurring) (ONCR) | payer MEDICARE, SELFPAY ==
[2025-02-05 12:45] LABS: Hematocrit 34.0 % (37-53); Hemoglobin 11.60 g/dL (11.27-16.99); Mean Corpuscular HGB Conc 34.1 g/dL (30-55); Mean Corpuscular Hemoglobin 35.8 pg (27-33); Mean Corpuscular Volume 104.9 fl (82-101); Nucleated Red Blood Cells % 0.3 %; Platelet Count 546 10^3/cmm (157-399); Red Blood Count 3.24 10^6/uL (3.85-5.65); White Blood Count 9.99 10^3/uL (3.29-11.43)
[2025-02-05 13:05] LABS: Alanine Aminotransferase 24 U/L (0-41); Albumin Level 4.3 g/dL (3.5-5.2); Alkaline Phosphatase 53 U/L (40-130); Anion Gap 14.0 (5-19); Aspartate Amino Transferase 19 U/L (0-40); Blood Urea Nitrogen 15 mg/dL (8-23); Calcium 9.2 mg/dL (8.5-10.5); Carbon Dioxide 29 mmol/L (22-29); Chloride 99 mmol/L (98-107); Creatinine Clr Calc Pharmacy 64.6841; Globulin 2.1 g/dL (1.3-4.6); Glucose 141 mg/dL (65-115); Osmolality Calculated 289 mOsm/kg (285-295); Potassium 4.0 mmol/L (3.5-5.1); Sodium 138 mmol/L (136-145); Total Protein 6.4 g/dL (6.6-8.7)
== END 2025-02-11 23:59 | disposition home or self-care (01) ==
PROVIDERS: Nurse Practitioner Family; PCP Family Medicine; Visit Provider Internal Medicine Medical Oncology
DX: D75.839 Thrombocytosis, unspecified (principal); D75.81 Myelofibrosis; F17.200 Nicotine dependence, unspecified, uncomplicated; R03.0 Elevated blood-pressure reading, without diagnosis of hypertension; R16.1 Splenomegaly, not elsewhere classified; G89.29 Other chronic pain; Z71.6 Tobacco abuse counseling; Z79.899 Other long term (current) drug therapy
CPT/HCPCS: 36415; 80053; 83615; 85025; 99214

== ENCOUNTER 2025-05-14 13:21 | Oncology outpatient (recurring) (ONCR) | payer MEDICARE, SELFPAY ==
[2025-05-14 13:42] LABS: Hematocrit 36.4 % (37-53); Hemoglobin 12.20 g/dL (11.27-16.99); Mean Corpuscular HGB Conc 33.5 g/dL (30-55); Mean Corpuscular Hemoglobin 35.8 pg (27-33); Mean Corpuscular Volume 106.7 fl (82-101); Nucleated Red Blood Cells % 0.3 %; Platelet Count 684 10^3/cmm (157-399); Red Blood Count 3.41 10^6/uL (3.85-5.65); White Blood Count 12.28 10^3/uL (3.29-11.43)
[2025-05-14 14:05] LABS: Alanine Aminotransferase 21 U/L (0-41); Albumin Level 4.5 g/dL (3.5-5.2); Alkaline Phosphatase 54 U/L (40-130); Anion Gap 15.1 (5-19); Aspartate Amino Transferase 21 U/L (0-40); Blood Urea Nitrogen 16 mg/dL (8-23); Calcium 9.2 mg/dL (8.5-10.5); Carbon Dioxide 29 mmol/L (22-29); Chloride 99 mmol/L (98-107); Globulin 2.1 g/dL (1.3-4.6); Glucose 162 mg/dL (65-115); Osmolality Calculated 293 mOsm/kg (285-295); Potassium 4.1 mmol/L (3.5-5.1); Sodium 139 mmol/L (136-145); Total Protein 6.6 g/dL (6.6-8.7)
== END 2025-05-14 23:59 | disposition home or self-care (01) ==
LOC: ONCMED 13:22
PROVIDERS: Nurse Practitioner Family; PCP Family Medicine; Visit Provider Internal Medicine Medical Oncology
DX: D75.839 Thrombocytosis, unspecified (principal); D75.81 Myelofibrosis; F17.290 Nicotine dependence, other tobacco product, uncomplicated; R03.0 Elevated blood-pressure reading, without diagnosis of hypertension; R16.1 Splenomegaly, not elsewhere classified; R30.0 Dysuria; G89.29 Other chronic pain; Z79.899 Other long term (current) drug therapy; Z79.82 Long term (current) use of aspirin; Z71.6 Tobacco abuse counseling
CPT/HCPCS: 80053; 83615; 85025; 99214